=== PATIENT | male | born 2000 | race Caucasian/White ===

== ENCOUNTER 2024-09-08 19:29 | Outpatient (REF) | payer OTHER, SELFPAY ==
--- NOTE | ~2024-09-08 | MR_ITS ---
CLINICAL HISTORY: Pain, Instability MRI right shoulder without contrast Comparison: None Findings: Rotator cuff tendons intact without tear. Biceps tendon normally positioned without tear. Glenoid labrum is within normal limits. No acute bony signal abnormality noted. Hill-Sachs deformity superolateral humeral head. No significant joint effusion. Impression: Hill-Sachs deformity superolateral humeral head No soft tissue abnormality This document has been electronically signed by: Matthew Rucker MD on 09/08/2024 20:31:33
== END 2024-09-08 19:30 | disposition home or self-care (01) ==
LOC: HO.MRI 19:29
PROVIDERS: Visit Provider Family Medicine
DX: M25.311 Other instability, right shoulder (principal); M25.511 Pain in right shoulder
CPT/HCPCS: 73221

== ENCOUNTER → 2024-09-08 19:37 | Outpatient (BNV) | payer OTHER, SELFPAY | PROVIDERS: Visit Provider Radiology Diagnostic Radiology | DX: S42.291A Other displaced fracture of upper end of right humerus, initial encounter for closed fracture (principal) | CPT/HCPCS: 73221 ==